=== PATIENT | male | born 1990 | race Caucasian/White ===

== ENCOUNTER 2024-04-12 21:08 | Emergency (ER) | payer OTHER, SELFPAY ==
[2024-04-12] VITALS (19 sets, daily range): BP systolic 129–144; BP diastolic 85–101; PULSE 74–111; RESP 11–20; TEMP 36.6–36.8; O2SAT 93–99; BMI 30.4
--- NOTE | 2024-04-12 21:13 | EKG12_ITS ---
Test Reason : CP Blood Pressure : / mmHG Vent. Rate : 097 BPM Atrial Rate : 097 BPM P-R Int : 116 ms QRS Dur : 080 ms QT Int : 344 ms P-R-T Axes : 068 058 051 degrees QTc Int : 436 ms Normal sinus rhythm with sinus arrhythmia Normal ECG Confirmed by Vinod Russell ([id number]), editorial intern GAYE DAVIS ([id number]) on 04/14/2024 9:41:42 AM Referred By: LILIAN Confirmed By:Vinod Russell
--- NOTE | 2024-04-12 21:23 | EDS_ITS ---
HPI <MARTINA Del Angel - Last Filed: 04/12/24 21:47> History of Present Illness Chief Complaint: Chest Pain Narrative Narrative: 33-year-old male with no significant past medical history, tobacco use presents with chest pain. Around 2 PM he [place] standing [place] the dock about to go boating when he felt lightheaded and developed lower midsternal chest pressure. He went out boating and the pain kind of waxed and waned throughout the day and he vomited few times intermittently. The pain worsened again in the last hour prompting him to come in. Is not exertional or pleuritic. He has no fever, chills, shortness of breath, or upper respiratory symptoms. He tried some antacids but it did not help. He denies personal or family cardiopulmonary history. He smokes 1 to 2 packs a day x 20 years but denies history of asthma or COPD. PFSH <MARTINA Del Angel - Last Filed: 04/12/24 21:47> [facility] Medical History no medical history Home Medications ?Medication ?Instructions ?Recorded ?Last Taken ?Type omeprazole 20 mg tablet,delayed 20 mg PO BID #30 tabs 04/13/24 Unknown Rx release Allergy/AdvReac Type Severity Reaction Status Date / Time No Known Allergies Allergy Verified 04/12/24 21:09 Surgical History (Updated 04/12/24 @ 21:42 by Rosemarie Girard) H/O neck surgery Social History Smoking Status: Current every day smoker tobacco type: cigarettes ROS <MARTINA Del Angel Last Filed: 04/12/24 21:47> ROS ED ROS Narrative Constitutional: Negative for fever, chills, malaise. CVS: Positive for chest pain. No syncope or palpitations. Respiratory: Negative for shortness of breath, cough. GI: Positive for nausea, vomiting. EXAM <MARTINA Del Angel Last Filed: 04/12/24 21:47> Physical Exam Narrative Exam Narrative: CONST: Patient sitting in no acute distress. EYES: Normal inspection. NECK: Normal inspection. RESP: No respiratory distress, CTAB. CVS: Tachycardic with regular rhythm around 100?105 on the monitor, no murmur, no gallop. ABD: Soft and nontender, no guarding or rebound, nondistended, no hepatosplenomegaly. SKIN: Color normal, no rash, warm, dry, intact. EXTREMITIES: Normal appearance, no pedal edema. NEURO: Alert and answering questions appropriately. PSYCH: Normal affect. Const Vital Signs: 04/12/24 21:10 04/12/24 21:46 04/12/24 21:50 Temperature 98 F Temperature Source Temporal Pulse Rate 111 H 85 86 Respiratory Rate 20 H 13 11 L Blood Pressure 144/101 H Blood Pressure Mean 115 Pulse Ox 98 97 93 Oxygen Delivery Method Room Air 04/12/24 21:55 04/12/24 22:00 04/12/24 22:05 Temperature Temperature Source Pulse Rate 89 94 83 Respiratory Rate 12 13 16 Blood Pressure 141/94 H Blood Pressure Mean 109 Pulse Ox 98 99 97 Oxygen Delivery Method 04/12/24 22:08 04/12/24 22:10 04/12/24 22:15 Temperature Temperature Source Pulse Rate 84 84 Respiratory Rate 13 14 Blood Pressure 139/101 H 142/96 H 136/91 H Blood Pressure Mean 113 106 104 Pulse Ox 93 95 Oxygen Delivery Method 04/12/24 22:20 04/12/24 22:25 04/12/24 22:30 Temperature Temperature Source Pulse Rate 79 83 78 Respiratory Rate 17 16 16 Blood Pressure 138/90 H 134/92 H 137/85 H Blood Pressure Mean 104 104 100 Pulse Ox 95 96 94 Oxygen Delivery Method 04/12/24 22:35 04/12/24 22:40 04/12/24 22:45 Temperature Temperature Source Pulse Rate 84 86 74 Respiratory Rate 17 16 15 Blood Pressure 129/86 H 137/92 H 136/96 H Blood Pressure Mean 99 103 107 Pulse Ox 94 97 95 Oxygen Delivery Method 04/12/24 22:50 04/12/24 22:55 04/12/24 23:00 Temperature Temperature Source Pulse Rate 78 84 79 Respiratory Rate 17 17 16 Blood Pressure 144/89 H 133/98 H 130/95 H Blood Pressure Mean 105 108 106 Pulse Ox 96 96 97 Oxygen Delivery Method 04/12/24 23:27 Temperature 98.2 F Temperature Source Pulse Rate 87 Respiratory Rate 12 Blood Pressure 131/89 H Blood Pressure Mean 103 Pulse Ox 97 Oxygen Delivery Method <Dr. Julia Pagan, DO - Last Filed: 04/13/24 00:14> Physical Exam Const Vital Signs: 04/12/24 21:10 04/12/24 21:46 04/12/24 21:50 Temperature 98 F Temperature Source Temporal Pulse Rate 111 H 85 86 Respiratory Rate 20 H 13 11 L Blood Pressure 144/101 H Blood Pressure Mean 115 Pulse Ox 98 97 93 Oxygen Delivery Method Room Air 04/12/24 21:55 04/12/24 22:00 04/12/24 22:05 Temperature Temperature Source Pulse Rate 89 94 83 Respiratory Rate 12 13 16 Blood Pressure 141/94 H Blood Pressure Mean 109 Pulse Ox 98 99 97 Oxygen Delivery Method 04/12/24 22:08 04/12/24 22:10 04/12/24 22:15 Temperature Temperature Source Pulse Rate 84 84 Respiratory Rate 13 14 Blood Pressure 139/101 H 142/96 H 136/91 H Blood Pressure Mean 113 106 104 Pulse Ox 93 95 Oxygen Delivery Method 04/12/24 22:20 04/12/24 22:25 04/12/24 22:30 Temperature Temperature Source Pulse Rate 79 83 78 Respiratory Rate 17 16 16 Blood Pressure 138/90 H 134/92 H 137/85 H Blood Pressure Mean 104 104 100 Pulse Ox 95 96 94 Oxygen Delivery Method 04/12/24 22:35 04/12/24 22:40 04/12/24 22:45 Temperature Temperature Source Pulse Rate 84 86 74 Respiratory Rate 17 16 15 Blood Pressure 129/86 H 137/92 H 136/96 H Blood Pressure Mean 99 103 107 Pulse Ox 94 97 95 Oxygen Delivery Method 04/12/24 22:50 04/12/24 22:55 04/12/24 23:00 Temperature Temperature Source Pulse Rate 78 84 79 Respiratory Rate 17 17 16 Blood Pressure 144/89 H 133/98 H 130/95 H Blood Pressure Mean 105 108 106 Pulse Ox 96 96 97 Oxygen Delivery Method 04/12/24 23:27 Temperature 98.2 F Temperature Source Pulse Rate 87 Respiratory Rate 12 Blood Pressure 131/89 H Blood Pressure Mean 103 Pulse Ox 97 Oxygen Delivery Method MDM <MARTINA Del Angel - Last Filed: 04/12/24 21:47> [facility] MDM Narrative Medical decision making narrative: Patient presents with chest pain and nausea and vomiting that started this afternoon. He appears well and nontoxic. BP 144/101, heart rate between 100?110 with otherwise normal vital signs. Cardiac workup ordered Patient treated with IV morphine, Zofran, and aspirin awaiting results. Lab Data Attestation: I reviewed the patient's lab results. Labs: Laboratory Results - last 24 hr 04/12/24 21:30 WBC 12.9 H RBC 4.94 Hgb 15.5 Hct 44.3 MCV 89.7 MCH 31.4 MCHC 35.0 RDW Std Deviation 43.5 RDW Coeff of [place] 13.2 Plt Count 279 MPV 10.0 Immature Gran % (Auto) 0.200 Neut % (Auto) 65.5 Lymph % (Auto) 24.1 [place] % (Auto) 9.4 Eos % (Auto) 0.3 Baso % (Auto) 0.5 Absolute Neuts (auto) 8.4 H Absolute Lymphs (auto) 3.11 Nucleated RBC % 0 D-Dimer Quant (PE/DVT) 0.36 Sodium 140 Potassium 3.4 L Chloride 107 Carbon Dioxide 23.0 Anion Gap 10 BUN 15 Creatinine 0.97 Estim Creat Clear Calc 135.00 Est GFR (MDRD) Af Amer 112 Est GFR (MDRD) Non-Af 93 BUN/Creatinine Ratio 15.4 Glucose 116 H Calcium 9.5 Total Bilirubin 0.40 AST 27 ALT 51 Alkaline Phosphatase 109 Troponin I High Sens 5 Total Protein 7.7 Albumin 4.0 Globulin 3.7 Albumin/Globulin Ratio 1.1 TSH 1.22 Radiography Diagnostic Testing: Clinical Impression(s) from Imaging Studies Chest X-Ray 04/12/24 21:55 IMPRESSION: No radiographic evidence of acute cardiopulmonary disease. Electronically Signed: Cheng Gardiner DO at 23:21 EDT Reading Location ID and State: [address] [place] [address] Tel [phone], Service support , EKG Initial EKG: Attestation: I personally reviewed and interpreted this EKG as follows: Interpretation: Sinus Rhythm and No Acute Injury Pattern Comments: Normal sinus rhythm with sinus arrhythmia at 97 bpm Normal intervals, no ischemic changes <Dr. Julia Pagan DO - Last Filed: 04/13/24 00:14> [facility] Narrative Medical decision making narrative: Patient presents with chest pain and nausea and vomiting that started this afternoon. He appears well and nontoxic. BP 144/101, heart rate between 100?110 with otherwise normal vital signs. Cardiac workup ordered Patient treated with IV morphine, Zofran, and aspirin awaiting results. I have personally performed a face to face assessment of the patient and have reviewed the LISS Note. I performed a substantive portion of the visit including all aspects of the following. My garcia findings include: History is patient presents with substernal chest pain, nausea, vomiting and sweating as well as lightheadedness that started this afternoon. Upon arrival patient is tachycardic but otherwise hemodynamically stable. His cardiac workup is largely normal with no acute ischemic EKG changes (normal sinus rhythm) and his high-sensitivity troponin is normal. He has a mild leukocytosis of 12.9 which is nonspecific. There is no obvious source of infection on physical exam or workup otherwise. X-ray viewed by myself as well as radiology does not show any acute infiltrate or other acute process. D-dimer is negative and patient is otherwise low risk I do not think he requires a CTA of the chest. Patient is given morphine and aspirin as well as Zofran in the ER with some improvement of his symptoms. He is then given a GI cocktail with further improvement states he is feeling much better. Patient be given a referral for primary care doctor and started on omeprazole. He is agreeable this plan of care. Given return precautions. Discharged home in stable condition. Other additions or changes: [None] Lab Data Labs: Laboratory Results - last 24 hr 04/12/24 21:30 WBC 12.9 H RBC 4.94 Hgb 15.5 Hct 44.3 MCV 89.7 MCH 31.4 MCHC 35.0 RDW Std Deviation 43.5 RDW Coeff of [place] 13.2 Plt Count 279 MPV 10.0 Immature Gran % (Auto) 0.200 Neut % (Auto) 65.5 Lymph % (Auto) 24.1 [place] % (Auto) 9.4 Eos % (Auto) 0.3 Baso % (Auto) 0.5 Absolute Neuts (auto) 8.4 H Absolute Lymphs (auto) 3.11 Nucleated RBC % 0 D-Dimer Quant (PE/DVT) 0.36 Sodium 140 Potassium 3.4 L Chloride 107 Carbon Dioxide 23.0 Anion Gap 10 BUN 15 Creatinine 0.97 Estim Creat Clear Calc 135.00 Est GFR (MDRD) Af Amer 112 Est GFR (MDRD) Non-Af 93 BUN/Creatinine Ratio 15.4 Glucose 116 H Calcium 9.5 Total Bilirubin 0.40 AST 27 ALT 51 Alkaline Phosphatase 109 Troponin I High Sens 5 Total Protein 7.7 Albumin 4.0 Globulin 3.7 Albumin/Globulin Ratio 1.1 TSH 1.22 Radiography Diagnostic Testing: Clinical Impression(s) from Imaging Studies Chest X-Ray 04/12/24 21:55 IMPRESSION: No radiographic evidence of acute cardiopulmonary disease. Electronically Signed: Cheng Gardiner DO at 23:21 EDT Reading Location ID and State: [address] [place] [address] Tel [phone], Service support , Rhythm Strip Rhythm Strip: Sinus Rhythm Rate: 97 Discharge Plan Triage Chief Complaint: Chest Pain ED Midlevel Provider: Nola Sanz ED Provider: Julia Pagan Dx/Rx/DC Orders Clinical Impression: Chest pain, mid sternal, Nausea & vomiting, Lightheaded Instructions: ED Chest Pain, Uncertain Cause Prescriptions: New omeprazole 20 mg tablet,delayed release (DR/EC) 20 mg PO BID Qty: 30 0RF Primary Care Provider: Care Physician,No Primary Referrals: Xiomy De La Rosa MD [Med Staff - Ward Service Supervisor] - 1-2 Weeks Care Physician,No Primary [Primary Care Provider] - Print Language: Tajik Disposition Disposition: Home, Self Care
[2024-04-12] MEDS: Ondansetron 4 MG/2 ML Vial IV (21:35)
[2024-04-12] MEDS: Morphine 4 MG/ML Syringe IV (21:36)
[2024-04-12] MEDS: 0.9% Normal Saline (1000mL) 1,000 ML 999 ML IV (21:36)
[2024-04-12] MEDS: Aspirin 325 MG Tablet PO (21:38)
[2024-04-12 21:45] LABS: Absolute Lymphocyte Count 3.11 X10^3/uL (0.83-4.51); Absolute Neutrophil Count 8.4 X10^3/uL (2.0-7.7); Basophil# 0.07 X10^3/uL; Basophil% 0.5 % (0-1); Eosinophil# 0.04 X10^3/uL; Eosinophils% 0.3 % (0-5); Hematocrit 44.3 % (40-54); Hemoglobin 15.5 g/dL (13.0-16.5); Lymphocyte # 3.11 X10^3/ul (0.83-4.51); Lymphocyte % 24.1 % (19-41); Mean Corpuscular Hgb 31.4 pg (27.0-32.0); Mean Corpuscular Volume 89.7 fL (80-94); Monocyte# 1.21 X10^3/uL; Monocyte% 9.4 % (0-10); NRBC Flagged by Analyzer 0 % (0-5); Neutrophil # 8.43 X10^3/uL (2.7-7.7); Neutrophil % 65.5 % (47-70); Platelet Count 279 K/mm3 (150-450); RBC Distribution Width CV 13.2 % (11.6-14.6); RBC Distribution Width SD 43.5 fl (35.1-43.9); Red Blood Count 4.94 M/mm3 (4.6-6.2); White Blood Count 12.9 K/mm3 (4.4-11.0)
--- NOTE | 2024-04-12 21:55 | RAD_ITS ---
INDICATION: chest pain EXAMINATION/TECHNIQUE: X-RAY - XR Chest 1 View COMPARISON: FINDINGS: LINES/DEVICES: None. LUNGS: No consolidation, edema or effusion. No pneumothorax. MEDIASTINUM AND CARDIOVASCULAR STRUCTURES: Cardiac silhouette not enlarged. Central airways and mediastinal contour are unremarkable. BONES AND SOFT TISSUES: Unremarkable. RAD/Chest 1 View (Portable) IMPRESSION: No radiographic evidence of acute cardiopulmonary disease. Electronically Signed: Cheng Gardiner DO at 23:21 EDT ,
[2024-04-12 21:57] LABS: D-Dimer Quantitative (DVT/PE) 0.36 FEU/ug/m (0.27-0.49)
[2024-04-12 22:17] LABS: ALB/GLOB Ratio 1.1 RATIO (0.9-2.4); AST(SGOT) 27 U/L (15-37); Alanine Aminotransfer ALT/SGPT 51 U/L (16-61); Alkaline Phosphatase 109 U/L (45-117); Anion Gap 10 (5-15); BUN 15 mg/dL (7-18); BUN/Creat Ratio 15.4 RATIO (10-20); Calcium,Total 9.5 mg/dL (8.5-10.1); Chloride 107 mmol/L (98-107); Creatinine, Serum 0.97 mg/dL (0.70-1.30); EST Glomerular Filtration Rate 93 mL/min (>60); Est Glom Filt Rate - Afr Amer 112 mL/min (>60); Globulin 3.7 g/dL (2.2-4.2); Glucose 116 mg/dL (74-106); Potassium 3.4 mmol/L (3.5-5.1); Protein, Total 7.7 g/dL (6.4-8.2); Sodium Level 140 mmol/L (136-145); Thyroid Stim Hormone (TSH) 1.22 uIU/mL (0.358-3.74); Troponin-I HS 5 pg/mL (3.0-78.0)
[2024-04-12] MEDS: Lidocaine 2% Viscous15 ML UDC 15 ML PO (23:25)
[2024-04-12] MEDS: Mag Hydrox/Al Hydrox/Simeth 30 ML UDC PO (23:25)
== END 2024-04-13 00:18 | disposition home or self-care (01) ==
PROVIDERS: Physician Assistant; Emergency Provider Emergency Medicine; Visit Provider Emergency Medicine
DX: R07.89 Other chest pain (principal); R11.2 Nausea with vomiting, unspecified; R07.2 Precordial pain; R42 Dizziness and giddiness; F17.210 Nicotine dependence, cigarettes, uncomplicated
CPT/HCPCS: 71045; 80053; 84443; 84484; 85025; 85379; 93005; 96361; 96374; 99284; J7030; A4216; J2405